=== PATIENT | female | born 1955 | race Caucasian/White ===

== ENCOUNTER → 2021-12-11 | Outpatient (CLI) | payer BC, OTHER ==
[~2021-12-11] MED LIST: ABILIFY 2 MG TAB2 MG PO; ALPRAZOLAM0.5 MG PO; ASPIR 8181 MG PO; BENADRYL 25MG C25 MG PO; BENADRYL25 MG PO; COLACE 100MG C100 MG PO; COREG 25MG TAB25 MG PO; COREG12.5 MG PO; CYMBALTA 30 MG30 MG PO; CYMBALTA60 MG PO; DIFLUCAN 100 M100 MG PO; EFFIENT10 MG PO; FLOVENT DISKUS50 MCG INH; FOLIC ACID 1 MG1 MG PO; FUROSEMIDE40 MG PO; GABAPENTIN800 MG PO; LINZESS145 MCG PO; LIPITOR TAB 2020 MG PO; LORTAB 5-325 M1 EACH PO; MONTELUKAST SOD10 MG PO; NITROSTAT 0.40.4 MG SL; OXYCODONE HCL10 MG PO; OXYCONTIN20 MG PO; PROTONIX40 MG PO; RAMIPRIL10 MG PO; RANOLAZINE ER1000 MG PO; SINGULAIR10 MG PO; SOMA350 MG PO; SPIRIVA RESPIMAT4 GM INH; STIOLTO RESPIMAT4 GM INH; SYMBICORT 160-1 INHA INH; VALIUM 5 MG TAB5 MG PO; VENTOLIN/PROVE0.5 ML INH; VITAMIN B-121000 MCG PO; VITAMIN B-12500 MCG PO; VITAMIN D250000 UNIT PO
== END ==
LOC: HEART 5 08:54
DX: J44.9 Chronic obstructive pulmonary disease, unspecified (principal); R94.2 Abnormal results of pulmonary function studies
CPT/HCPCS: 94060; 94729

== ENCOUNTER → 2021-12-11 | Outpatient (CLI) | payer BC, OTHER | LOC: CT 12:02 | DX: J44.9 Chronic obstructive pulmonary disease, unspecified (principal); R94.2 Abnormal results of pulmonary function studies; I10 Essential (primary) hypertension; J90 Pleural effusion, not elsewhere classified; J98.11 Atelectasis | CPT/HCPCS: 36415; 71275; 82565; 84520; Q9967 ==

== ENCOUNTER → 2021-12-20 | Outpatient (CLI) | payer BC, OTHER ==
[2021-12-20 09:42] LABS: HEMOGLOBIN 12.7 gm/dl (12.3-15.3); RED BLOOD COUNT 4.08 M/UL (4.00-5.10); WHITE BLOOD COUNT 6.1 K/UL (4.5-11.0)
[2021-12-20 11:31] LABS: BODY FLUID SOURCE PLEURAL
[2021-12-20 11:32] LABS: MONONUCLEAR CELLS 80 (75-100); POLYMORPHONUCLEAR % 20 (0-25); RBC (AUTOMATED) 1300 (0-100000); WBC (AUTOMATED) 2469 (0-500)
[2021-12-20 11:51] LABS: LDH, BODY FLUID 180 U/L; TOTAL PROTEIN, BODY FLUID 4.2 gm/dL
== END ==
LOC: US 12-18 09:55
PROVIDERS: Internal Medicine Critical Care Medicine
DX: J90 Pleural effusion, not elsewhere classified (principal); Z85.118 Personal history of other malignant neoplasm of bronchus and lung
CPT/HCPCS: 36415; 71046; 82150; 82945; 83615; 83986; 84157; 85025; 85610; 87070; 87205; 89051; C1729

== ENCOUNTER → 2021-12-26 | Outpatient (CLI) | payer BC, OTHER | LOC: RAD 17:10 | DX: J90 Pleural effusion, not elsewhere classified (principal) | CPT/HCPCS: 71046 ==